=== PATIENT | male | born 1945 | race Caucasian/White ===

== ENCOUNTER → 2023-11-06 08:33 | Outpatient (REF) | payer MEDICARE, OTHER, SELFPAY | LOC: MRI 08:33 | PROVIDERS: ATTENDING PHYSICIAN Family Medicine | DX: M54.16 Radiculopathy, lumbar region (principal) | CPT/HCPCS: 70030; 72148 ==

== ENCOUNTER → 2024-01-12 10:49 | Outpatient (REF) | payer MEDICARE, OTHER, SELFPAY | LOC: HWRAD 10:49 | PROVIDERS: ATTENDING PHYSICIAN Urology; FAMILY PHYSICIAN Family Medicine | DX: N20.0 Calculus of kidney (principal) | CPT/HCPCS: 76775 ==

== ENCOUNTER 2024-11-23 21:43 | Emergency (ER) | payer MEDICARE, OTHER, SELFPAY ==
[2024-11-23 21:46] VITALS: BP 130/76
[2024-11-23 22:19] VITALS: BMI 24.6
--- NOTE | 2024-11-24 00:15 | ED.GENMED ---
History of Present Illness
General
Chief Complaint: Fall
Source: patient and spouse
Exam Limitations: none
Time Seen by Provider: 11/23/24 22:58
Nursing documentation reviewed up to this point in time: agreed with
History of Present Illness
History of Present Illness:
Pleasant 79-year-old male presents to the emergency department with right shoulder pain and left rib pain. Patient was doing some gardening in his yard and fell on his right shoulder and left chest. He states that his right hand landed between the
ground and his shoulder causing shoulder pain. Patient denies head injury or loss of consciousness. He is on Eliquis.
Past History
Past History
ED Past Medical History: Other (Kidney stones, prostate cancer)
ED Past Surgical History: Tonsilectomy
Social History
Tobacco: Non-smoker
Alcohol: None
Drug: None
Living: alone
Phy Exam
Physical Exam
Physical Exam:
Physical Exam
Vital signs and allergy list reviewed and agreed with.
GENERAL: Alert , in minimal apparent distress
EYE: pupils equal, EOMI, anicteric
NECK: Supple, no significant adenopathy. No masses. Trachea midline
ENT: Oropharynx is clear, mmm.
CARDIAC: Regular rate and rhythm . No M/R/G
LUNGS: Clear breath sounds bilaterally, no acute respiratory distress, no wheezes/rales/rhonchi
ABDOMEN: Soft, without focal tenderness, no r/g, no cvat. Normal BSx4q
NEUROLOGICAL: Alert and oriented, no focal neuro deficits
SKIN: Warm and dry, skin intact.
MUSCULOSKELETAL: No edema, well perfused. Moves all 4 extremities tenderness to palpation left ribs. No obvious fracture on x-ray.
PSYCH: Normal and appropriate interaction.
Course
Orders/Labs/Results
Orders:
Orders
11/23/24 21:48
CR Ribs-left 3 Vw W/pa Chest Urgent
Comment:
Reason For Exam: fall, injury
11/23/24 21:56
CR Shoulder - Right Min 2 View Urgent
Comment:
Reason For Exam: fall
11/24/24 00:11
Tramadol HCl [Ultram] 50 mg PO NOW STA
Incentive Spirometry [Rx Incentive Spirometry] [RESP] Urgent
Frequency: q1h while awake
11/24/24 00:12
Electrocardiogram (*1) Urgent
Reason for Study: Chest Pain
EKG- Treatment ONCE
11/24/24 00:17
CT Head W/o Iv Contrast Urgent
Comment:
Reason For Exam: fall on eliqus
Vital Signs
Initial and Last Documented VS:
Initial Vital Signs
Temp Pulse Resp BP Pulse Ox
97.9 F 95 18 130/76 99
11/23/24 21:46 11/23/24 21:46 11/23/24 21:46 11/23/24 21:46 11/23/24 21:46
Last Documented Vital Signs
Temp Pulse Resp BP Pulse Ox
97.9 F 95 18 130/76 99
11/23/24 21:46 11/23/24 21:46 11/23/24 21:46 11/23/24 21:46 11/23/24 21:46
*Critical Care Note
Total Time (30-74mins, 75-104mins- exclusive of procedures): Not Applicable
Update Note
Update Note:
CT of the head is negative.
ED Attending Note
-
Portions of this chart may have been created with voice recognition software.� Occasional wrong word or��sound alike� substitutions may have occurred due to the inherent limitations of voice recognition software.
Discharge Plan
Departure
Patient Disposition: Home (Routine Discharge)
Date of Disposition: 11/24/24
Time of Disposition: 02:17
Patient with high blood pressure during this ER visit?: Yes
Condition: Good
Discharge Problem:
Contusion, Rib pain on left side, Acute shoulder pain due to trauma
Instructions: Rib injury in adults, Contusion (DC), How to use an incentive spirometer, Shoulder pain - ED discharge instructions, BLOOD PRESSURE
Prescriptions:
No Action
cyanocobalamin (vitamin B-12) 1,000 MCG tablet
1,000 mcg PO DAILY
empsumki-qkquh-bnc 149-hyal ac 1 EACH tablet
1 ea PO DAILY
vitamin E (dl, acetate) 400 UNITS capsule
400 units PO DAILY
multivitamin with folic acid [Tab-A-Darius] 1 TABLET tablet
1 tab PO DAILY
Cinnamon
1 cap PO DAILY
Cranberry
1 cap PO DAILY
OMEGA-3
1 cap PO DAILY
Red Yeast Rice
1 tab PO DAILY
diltiazem HCl 120 mg Capsule,Extended Release 24 Hr
120 mg PO QPM
Eliquis 5 mg Tablet
5 mg PO BID
Referrals:
Alen Sloan MD [Active] - As needed
Earnest Alvarado MD [Family Provider] -
Activity Restrictions/Additional Instructions:
Thank You for choosing [facility].
It was a pleasure meeting you and taking part in your care. We hope for your continued healing and wellness.
Please read discharge instructions in their entirety. However, they are for general education and may not describe your exact diagnosis at discharge. Information on your ER visit and medical conditions were discussed with you along with appropriate
follow up information...
If indicated, please take your medications as instructed and indicated on discharge paperwork.
Please schedule a follow up appointment as directed. Call to schedule an appointment
Please return to the emergency department with ANY change in, persisting, or worsening of symptoms. If any of your symptoms do not improve, or persist, or become more severe within 6-12 hours, please return to the emergency department for further
care.
Please return to the emergency department if you develop a headache, neck pain/stiffness, fever greater than 100.4F, chest pain, shortness of breath, persistent nausea, vomiting, slurred speech, difficulty walking, numbness/tingling, weakness, signs
of infection or any other symptoms that are worrisome to you.
If you have any questions or concerns please do not hesitate to call the Hospital at or E-mail me directly at [email or web address]
Interventions
Interventions:
*Risk Screen - Suicide Last Done: 11/23/24 21:48
*General Assessment Last Done: 11/23/24 21:48
*Neglect/Abuse Screening Last Done: 11/23/24 21:48
*ED COVID-19 Vaccine History Last Done: 11/23/24 21:48
*Nursing Disposition Last Done: 11/24/24 02:29
ED-Musculoskeletal Assessment Last Done: 11/23/24 22:19
ED- Neurological Assessment Last Done: 11/23/24 22:19
ED-Skin Assessment Last Done: 11/23/24 22:19
Discharge Date and Time
Discharge Date/Time: 11/24/24 02:29
Print Language: GREEK
[2024-11-24] MEDS: ULTRAM 50 MG PO (00:16)
== END 2024-11-24 02:29 | disposition home or self-care (01) ==
LOC: EMR 21:43
PROVIDERS: EMERGENCY PHYSICIAN Student in an Organized Health Care Education/Training Program; FAMILY PHYSICIAN Family Medicine
DX: M25.511 Pain in right shoulder (principal); S20.219A Contusion of unspecified front wall of thorax, initial encounter; R07.81 Pleurodynia; W19.XXXA Unspecified fall, initial encounter; I48.91 Unspecified atrial fibrillation; Z79.01 Long term (current) use of anticoagulants; Z85.46 Personal history of malignant neoplasm of prostate; Z87.442 Personal history of urinary calculi
CPT/HCPCS: 99284; 70450; 71101; 73030; 93005

== ENCOUNTER → 2025-01-01 10:32 | Outpatient (REF) | payer MEDICARE, OTHER, SELFPAY | LOC: HWRAD 10:32 | PROVIDERS: ATTENDING PHYSICIAN Urology; FAMILY PHYSICIAN Family Medicine | DX: N20.0 Calculus of kidney (principal) | CPT/HCPCS: 76775 ==